=== PATIENT | female | born 1990 | race American Indian/Alaskan Native ===

== ENCOUNTER 2018-12-01 19:09 | Emergency (ER) | payer OTHER ==
--- NOTE | 2018-12-01 19:52 | Emergency Department Report ---
Blank Doc - Documentation Documentation: 28-year-old female that presents with chest pain and some sob. This initial assessment/diagnostic orders/clinical plan/treatment(s) is/are subject to change based on patient's health status, clinical progression and re- assessment by fellow clinical providers in the ED. Further treatment and workup at subsequent clinical providers discretion. Patient/guardians urged not to elope from the ED as their condition may be serious if not clinically assessed and managed. Initial orders include: 1- Patient sent to [facility] for further evaluation and treatment 2- EKG 3- CXR
--- NOTE | 2018-12-01 20:44 | XRay Report ---
CHEST 2 VIEWS INDICATION: cp. COMPARISON: None FINDINGS: Support devices: None. Heart: Within normal limits. Lungs: No acute air space or interstitial disease. Pleura: No significant pleural effusion. No pneumothorax. Additional findings: None. IMPRESSION: 1. No acute findings. Signer Name: Bj Montgomery MD Signed: 12/01/2018 8:40 PM Workstation Name: [id number]
[2018-12-02] MEDS ORDERED: IBUPROFEN 800 MG TAB PO ONE (00:51)
--- NOTE | 2018-12-02 00:57 | Emergency Department Report ---
ED General Adult HPI - General Chief complaint: Chest Pain Stated complaint: CHEST PAIN Time Seen by Provider: 12/01/18 19:51 Source: patient Mode of arrival: Ambulatory Limitations: No Limitations - History of Present Illness Initial comments: 28-year-old female with a past medical history of hyperthyroidism and hypertension presents to hospital complaining of anterior chest pain 1 week. Pain is constant described as a pressure rated 7/10 in intensity. Pain is worse with movement, bending forward, and palpation. Patient denies cough but states she's been having to clear her secretions. She feels like her thyroid is large and causing some pressure on her throat. She is scheduled to visit with her treatment counselor next month. She attempted to follow up today but was told to come to the ER due to chest pain complaints. Patient denies shortness of breath, nausea, vomiting, diaphoresis, calf tenderness or leg edema. - Related Data Previous Rx's Medication Instructions Recorded Last Taken Type Ibuprofen [Motrin 800 MG tab] 800 mg PO ONCE PRN #20 tablet 12/02/18 Unknown Rx traMADol [Ultram 50 MG tab] 50 mg PO Q6HR PRN #20 tablet 12/02/18 Unknown Rx Allergies Allergy/AdvReac Type Severity Reaction Status Date / Time No Known Allergies Allergy Verified 12/01/18 19:18 ED Review of Systems ROS: Stated complaint: CHEST PAIN Other details as noted in HPI Comment: All other systems reviewed and negative ED Past Medical Hx - Past Medical History Hx Hypertension: Yes Additional medical history: HYPERTHYROIDISM - Surgical History Past Surgical History?: No - Social History Smoking Status: Never Smoker Substance Use Type: Alcohol - Medications Home Medications: Home Medications Medication Instructions Recorded Confirmed Last Taken Type Ibuprofen [Motrin 800 MG tab] 800 mg PO ONCE PRN #20 tablet 12/02/18 Unknown Rx traMADol [Ultram 50 MG tab] 50 mg PO Q6HR PRN #20 tablet 12/02/18 Unknown Rx ED Physical Exam - General Limitations: No Limitations - Other Other exam information: Gen.: No acute distress Head: Atraumatic Eyes: Normal appearance ENT: Moist mucous membranes Neck: Normal appearance, no posterior midline tenderness, no meningismus, thyromegaly Chest: Clear to auscultation bilaterally Cardiovascular: Regular rate and rhythm or reproducible sternum and anterior upper chest wall tenderness to palpation Abdomen: Normal appearance, soft, nontender, no rebound or guarding, normal bowel sounds Back: Normal appearance, nontender Extremity: Full range of motion, normal appearance, no calf tenderness or leg edema Neuro: Alert Ox3, clear speech, no focal motor or sensory deficit Psychiatric: Appropriate Skin: No rash ED Course Vital Signs 12/01/18 19:50 Temperature 98.6 F Pulse Rate 69 Respiratory 18 Rate Blood Pressure 149/107 O2 Sat by Pulse 100 Oximetry ED Medical Decision Making - EKG Data -: EKG Interpreted by Me EKG shows normal: sinus rhythm, ST-T waves (no stmei) Rate: normal - Radiology Data Radiology results: report reviewed Chest x-ray: No acute findings - Medical Decision Making Patient has reproducible anterior chest wall tenderness to palpation suggestive of costochondritis. Motrin propriety (Toradol refused) patient is driving and will be prescribed Motrin and Tramadol for home. Encouraged follow-up with her treatment counselor regarding her thyroid concerns. - Differential Diagnosis [place], costochondritis, pneumonia, pericarditis, pneumothorax, PE Critical Care Time: No Critical care attestation.: If time is entered above; I have spent that time in minutes in the direct care of this critically ill patient, excluding procedure time. ED Disposition Clinical Impression: Chest wall pain Disposition: TO HOME OR SELFCARE Is pt being admited?: No Does the pt Need Aspirin: No Condition: Stable Instructions: Costochondritis (ED) Additional Instructions: Take the medication as prescribed. Follow-up with your doctor or with the doctor/clinic provided. Return if symptoms worsen as indicated by your discharge instructions. Prescriptions: Ibuprofen [Motrin 800 MG tab] 800 mg PO ONCE PRN #20 tablet PRN Reason: Pain, Moderate (4-6) traMADol [Ultram 50 MG tab] 50 mg PO Q6HR PRN #20 tablet PRN Reason: Pain Referrals: PRIMARY CARE, [Primary Care Provider] - 3-5 Days MICHAEL MERINO MD [Staff Physician] - 3-5 Days (Primary care doctor) Time of Disposition: :
[2018-12-02 01:48] VITALS: BP 132/78
== END 2018-12-02 01:49 | disposition home or self-care (01) ==
LOC: ED 19:09
DX: M94.0 Chondrocostal junction syndrome [Tietze] (principal); I10 Essential (primary) hypertension; E03.9 Hypothyroidism, unspecified; Z79.1 Long term (current) use of non-steroidal anti-inflammatories (NSAID)
CPT/HCPCS: 71046; 93005; 93010; 99283